=== PATIENT | female | born 1970 | race African-American/Black ===

== ENCOUNTER 2018-03-04 07:38 | Day surgery (SDC) | payer OTHER ==
[2018-03-03 18:48] VITALS: BMI 39.2
[~2018-03-04 07:38] MED LIST: BETAMET ACET/BETAMET NA PH 30 MG/5 ML VIAL IM ONE; BUPIVACAINE HCL/PF 0.25% (2.5MG/ML) 10 ML VIAL IJ ONE; IOHEXOL 180 MG/1 ML ML IJ ONE; LIDOCAINE HCL 1%, 10 MG/ML (20ML VIAL) INF ONE
[2018-03-04] MEDS ORDERED: LIDOCAINE HCL 1%, 10 MG/ML (20ML VIAL) ONE (08:05)
[2018-03-04] MEDS ORDERED: BETAMET ACET/BETAMET NA PH 30 MG/5 ML VIAL ONE (08:05)
[2018-03-04] MEDS ORDERED: BUPIVACAINE HCL/PF 0.25% (2.5MG/ML) 10 ML VIAL ONE (08:06)
[2018-03-04 08:28] VITALS: TEMP 98.2
[2018-03-04] MEDS ORDERED: PROPOFOL 20 ML ONE ×2 (09:07)
[2018-03-04] MEDS ORDERED: LIDOCAINE HCL 1%, 10 MG/ML (20ML VIAL) INF ONE ×2 (09:16→09:17)
[2018-03-04] MEDS ORDERED: IOHEXOL 180 MG/1 ML ML IJ ONE (09:19)
[2018-03-04] MEDS ORDERED: BETAMET ACET/BETAMET NA PH 30 MG/5 ML VIAL IM ONE (09:21)
[2018-03-04] MEDS ORDERED: BUPIVACAINE HCL/PF 0.25% (2.5MG/ML) 10 ML VIAL IJ ONE (09:21)
[2018-03-04 11:00] VITALS: BP 141/78; PULSE 78
--- NOTE | 2018-03-29 09:49 | PROC ---
Procedure Note Procedure: Date of service: 03/04/2018 Preoperative Diagnosis: Low back pain and lumbar radiculopathy on Left Postoperative Diagnosis: Same Procedure Performed: Lumbar Epidural Steroid Injection (LESI) on Left L4-5 with dye under Fluoroscopy Anesthesia: Local / MAC Anesthesiologist: Procedure: I discussed with the patient in detail about the risks, benefits, and alternatives to treatment not only limited to infection, headache, numbness , weakness, and injury to nerves, blood vessels and muscles. The patient understood, agreed and signed the written consent. The patient was placed in the prone position with the head, abdomen and legs supported with the pillows. The lumbosacral area was prepped and draped with Betadine times three in a sterile fashion. Lumbar vertebrae were identified under the C-arm. At L4-5 level on the Left side, 3 ml of 1 % Lidocaine was infiltrated into the skin and subcutaneous tissue. A 3 inch, #20 gauge Tuohy needle was advanced to the epidural space with loss of resistance technique under fluoroscopic guidance. Aspiration was negative for cerebrospinal fluid and blood. 2ml of Omnipaque ( radio-opaque dye) was injected to confirm the tip of the needle into epidural space and spread of dye. There was no CSF or vascular spread. The spread of dye was noted cranially and caudally on epidurogram. Aspiration was done again which was negative. A solution of 2.5 ml of Celestone 2.5 ml of 0.25% Marcain and a total of 5 ml was injected slowly. While Tuohy needle was withdrawn 2.0 ml of 1 % Lidocaine was infiltrated. Bleeding was checked. Betadine was wiped off. A sterile bandage was placed. The patient tolerated the procedure well. There were no immediate complications. The patient was transferred to the recovery room. The patient was observed for some time and discharged as per ASU criteria. The patient was told to apply ice at the injection site. Follow up appointment was given and also call my office at [phone]. If there is any problem, call my office or report to Emergency Room. Conner Esteves M.D.
== END 2018-03-04 10:40 | disposition home or self-care (01) ==
LOC: JASU-SURG 07:38
PROVIDERS: ATTEND Physical Medicine & Rehabilitation
PROC: 3E0R33Z Introduction of Anti-inflammatory into Spinal Canal, Percutaneous Approach (ICD-10-PCS; 2018-03-04)
PROC: B01BYZZ Fluoroscopy of Spinal Cord using Other Contrast (ICD-10-PCS; 2018-03-04)
PROC: 3E0R3BZ Introduction of Anesthetic Agent into Spinal Canal, Percutaneous Approach (ICD-10-PCS; principal; 2018-03-04 08:30)
DX: M54.16 Radiculopathy, lumbar region (principal); M54.5 Low back pain
CPT/HCPCS: 76000-TC-FY; 84703